=== PATIENT | male | born 1965 | race Caucasian/White ===

== ENCOUNTER 2017-01-03 17:54 | Emergency (ER) | payer MEDICAID ==
[~2017-01-03] VITALS: Ht 190.5 cm; Wt 109.8 kg
[2017-01-03 18:28] VITALS: BP 122/77
== END 2017-01-03 19:22 | disposition home or self-care (01) ==
LOC: ER 18:02
DX: J40 Bronchitis, not specified as acute or chronic (principal)

== ENCOUNTER 2018-11-30 12:28 | Emergency (ER) | payer MEDICAID ==
[~2018-11-30] VITALS: Ht 182.9 cm; Wt 108.9 kg
[2018-11-30 13:56] VITALS: BP 127/78
== END 2018-11-30 14:17 | disposition home or self-care (01) ==
LOC: ER 12:38
DX: J02.9 Acute pharyngitis, unspecified (principal)
CPT/HCPCS: 71046

== ENCOUNTER 2020-08-20 17:43 | Emergency (ER) | payer MEDICAID ==
[~2020-08-20] VITALS: Ht 190.5 cm; Wt 86.2 kg
[2020-08-20] MEDS ORDERED: HYDROcodone-ACET 5/325MG TAB PO ONE ×2 (19:00→21:15)
[2020-08-20 21:05] VITALS: BP 102/68
== END 2020-08-20 22:57 | disposition home or self-care (01) ==
LOC: ER 17:46
DX: S22.42XA Multiple fractures of ribs, left side, initial encounter for closed fracture (principal); V43.52XA Car driver injured in collision with other type car in traffic accident, initial encounter; Y93.89 Activity, other specified; Y92.488 Other paved roadways as the place of occurrence of the external cause; Y99.8 Other external cause status
CPT/HCPCS: 71250; 73000